=== PATIENT | female | born 1960 | race Caucasian/White ===

== ENCOUNTER 2016-10-24 18:06 | Emergency (ER) | payer SELFPAY ==
[2016-10-24 18:51] VITALS: BP 122/77; PULSE 95; TEMP 98.9; BMI 29.3
--- NOTE | 2016-10-24 21:03 | PDOC ---
History of Present Illness - History of Present Illness Initial Comments: 10/24/16 21:32 56F w/ hx of IBS, diverticulosis, and hiatal hernia presenting with 2 days of lower abdominal pain. Pt was in her USOH until 2 days ago when she developed this suprapubic abdominal pain in a belt-like distribution, 01/03, colicky, crampy in nature, radiating to back, worsened by walking, unrelieved by 2 excedrin pills and diclocyclamine, accompanied by nausea and night sweats last night. Pt thought she was constipated, took dulcolex last night, had a BM this am which only worsened the abdominal pain. She denies any dysuria. 10/24/16 21:48 <Kobe Lomeli - Last Filed: 10/25/16 00:24> <Sue Benson - Last Filed: 10/25/16 02:50> - General Chief Complaint: Pain Stated Complaint: ABDOMINAL PAIN Time Seen by Provider: 10/24/16 20:03 Past History - Past Medical History GI Disorders: Yes (GERD/ DIVERTICULOSIS/ IBS) HTN: Yes Psychiatric Problems: Yes (anxiety) Other medical history: HIATAL HERNIA Comment:: 10/24/16 21:50 Diverticulosis- dx 3-4 years ago hiatal hernia IBS- dx 3-4 years ago stress incontinence anxiety HTN Allergies: NKDA Meds: dicyclomine 10mg for diverticulosis xanax PRN lisinopril 40mg qd - Immunization History Immunization Up to Date: Yes - Psycho/Social/Smoking Cessation Hx Suicidal Ideation: No Smoking Status: No Smoking History: Never smoked Have you smoked in the past 12 months: No Number of Cigarettes Smoked Daily: 0 Information on smoking cessation initiated: No Hx Alcohol Use: No Drug/Substance Use Hx: No Substance Use Type: None <Kobe Lomeli - Last Filed: 10/25/16 00:24> <Sue Benson - Last Filed: 10/25/16 02:50> - Past Medical History Allergies/Adverse Reactions: Allergies Allergy/AdvReac Type Severity Reaction Status Date / Time No Known Allergies Allergy Verified 10/24/16 18:43 Home Medications: Ambulatory Orders Alprazolam 0.5 mg PO TID PRN #60 12/26/14 Lisinopril [Prinivil -] 40 mg PO DAILY #30 tablet 12/26/14 Doxycycline Monohydrate [Monodox] 100 mg PO Q12H #14 capsule 10/25/16 Ibuprofen [Motrin -] 600 mg PO TID PRN #21 tablet 10/25/16 Oxycodone HCl/Acetaminophen [Percocet 5-325 mg Tablet] 1 tab PO Q6H PRN #4 tablet MDD 4 10/25/16 Review of Systems - Review of Systems Comments:: 10/24/16 21:51 denies headaches, endorses some mild dyspnea and chest pain (one episode yesterday which resolved) 10/24/16 22:36 <Kobe Lomeli - Last Filed: 10/25/16 00:24> *Physical Exam - Vital Signs Last Vital Signs Temp Pulse Resp BP Pulse Ox 98.9 F 95 H 122/77 97 10/24/16 18:44 10/24/16 18:44 10/24/16 18:44 10/24/16 18:44 10/24/16 18:44 - Physical Exam Comments: 10/24/16 21:52 General: middle aged female lying in bed in mild distress Cardiac: tachycardic, normal rhythm, no m/r/g Pulm: CTAB, no wheezing, no rales Abd: soft, mildly distended, markedly tender to palpation in suprapubic region extremities: no edema, + pulses 10/24/16 22:36 <Kobe Lomeli - Last Filed: 10/25/16 00:24> - Vital Signs Last Vital Signs Temp Pulse Resp BP Pulse Ox 98.9 F 95 H 122/77 97 10/24/16 18:44 10/24/16 18:44 10/24/16 18:44 10/24/16 18:44 10/24/16 18:44 <Sue Benson - Last Filed: 10/25/16 02:50> ED Treatment Course - LABORATORY CBC & Chemistry Diagram: 10/24/16 22:00 10/24/16 22:00 <Kobe Lomeli - Last Filed: 10/25/16 00:24> - LABORATORY CBC & Chemistry Diagram: 10/24/16 22:00 10/24/16 22:00 - ADDITIONAL ORDERS Additional order review: Laboratory Results 10/24/16 10/24/16 22:00 22:00 Sodium 141 Potassium 3.6 Chloride 103 Carbon Dioxide 29 Anion Gap 9 BUN 13 Creatinine 0.9 Creat Clearance w eGFR > 60 Random Glucose 116 H Calcium 8.5 Total Bilirubin 1.1 H AST 30 ALT 42 Alkaline Phosphatase 79 D Total Protein 7.3 Albumin 3.5 Lipase 83 Urine Color Yellow Urine Appearance Clear Urine pH 5.0 Urine Protein Negative Urine Glucose (UA) Negative Urine Ketones Negative Urine Blood 2+ H Urine Nitrite Negative Urine Bilirubin Negative Urine Urobilinogen Negative Ur Leukocyte Esterase Trace Urine RBC 1 Urine WBC 2 Ur Epithelial Cells Rare Urine Mucus Rare 10/24/16 22:00 RBC 4.02 MCV 93.5 MCHC 33.5 RDW 13.8 MPV 8.2 Neutrophils % 74.8 Lymphocytes % 16.8 Monocytes % 6.5 Eosinophils % 1.2 Basophils % 0.7 - RADIOLOGY Radiology Studies Ordered: Category Date Time Status TRANSVAGINAL ULTRASOUND US [US] Stat Ultrasound 10/25/16 00:17 Taken - Medications Given in the ED: ED Medications Discontinued Medications Generic Name Dose Route Start Last Admin Trade Name Romana PRN Reason Stop Dose Admin Dicyclomine HCl 20 mg 10/24/16 22:15 10/24/16 22:44 Bentyl - PO 10/24/16 22:16 20 mg ONCE ONE Administration Sodium Chloride 1,000 mls @ 1,000 mls/hr 10/24/16 21:55 10/24/16 22:44 Normal Saline - IV 10/24/16 22:54 1,000 mls/hr ASDIR STA Administration Ketorolac Tromethamine 30 mg 10/25/16 00:17 10/25/16 01:05 Toradol Injection - IVPUSH 10/25/16 00:18 30 mg ONCE ONE Administration <Sue Benson - Last Filed: 10/25/16 02:50> Medical Decision Making - Medical Decision Making 10/24/16 22:38 A&P: 56F w/ hx of diverticulosis and IBS presenting with acute suprapubic pain similar to prior episodes of IBS pain but worse in severity. Exam notable for marked tenderness in suprapubic region. 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 Kobe Lomeli, attest that this document has been prepared under my direction and personally reviewed by me in its entirety. I further attest, that it accurately reflects all work, treatment, procedures and medical decision -making performed by me. <Kobe Lomeli - Last Filed: 10/25/16 00:24> <Sue Benson - Last Filed: 10/25/16 02:50> Diagnosis at time of Disposition: Suprapubic abdominal pain - Discharge Dispostion Disposition: HOME Condition at time of disposition: Stable - Prescriptions Prescriptions: Doxycycline Monohydrate [Monodox] 100 mg PO Q12H #14 capsule Ibuprofen [Motrin -] 600 mg PO TID PRN #21 tablet PRN Reason: Pain Oxycodone HCl/Acetaminophen [Percocet 5-325 mg Tablet] 1 tab PO Q6H PRN #4 tablet MDD 4 PRN Reason: Severe Pain - Referrals Referrals: Jaime Alcocer MD [Primary Care Provider] - - Patient Instructions Printed Discharge Instructions: DI for Pelvic Pain Additional Instructions: please followup with your drum stenciler return if you have worsening symptoms
[2016-10-24] MEDS ORDERED: SODIUM CHLORIDE 1,000 ML IV STA (21:55)
[2016-10-24] MEDS ORDERED: DICYCLOMINE HCL 20 MG TABLET PO ONE (21:55)
[2016-10-24] MEDS ORDERED: DICYCLOMINE HCL 10 MG CAPSULE PO ONE (22:15)
[2016-10-24] MEDS ORDERED: DICYCLOMINE HCL 10 MG CAPSULE ONE (22:34)
[2016-10-24 22:50] LABS: BASOPHIL 0.7 % (0-2.0); EOSINOPHIL 1.2 % (0-4.5); MCH 31.4 pg (25.7-33.7); MCHC 33.5 g/dl (32.0-36.0); MEAN CELL VOLUME 93.5 fl (80-96); MEAN PLT VOLUME 8.2 fl (7.5-11.1); NEUTROPHILS 74.8 % (42.8-82.8); PLATELET COUNT 238 K/MM3 (134-434); RDW 13.8 % (11.6-15.6); URINE APPEARANCE CLEAR; URINE BILIRUBIN NEGATIVE (NEGATIVE); URINE BLOOD 2+ (NEGATIVE); URINE COLOR YELLOW; URINE GLUCOSE (UA) NEGATIVE (NEGATIVE); URINE KETONE NEGATIVE (NEGATIVE); URINE LEUK ESTERASE TRACE (NEGATIVE); URINE NITRITE NEGATIVE (NEGATIVE); URINE PROTEIN NEGATIVE (NEGATIVE); URINE UROBILINOGEN NEGATIVE mg/dL (0.2-1.0); WHITE BLOOD COUNT 12.5 K/mm3 (4.0-10.0)
[2016-10-24 22:53] LABS: URINE MUCUS RARE; URINE RBC 1 /hpf (0-3); URINE WBC 2 /hpf (3-5)
[2016-10-25 00:04] LABS: ALBUMIN 3.5 g/dl (3.4-5.0); ALK PHOS 79 U/L (45-117); ANION GAP 9 (8-16); BILIRUBIN,TOTAL 1.1 mg/dL (0.2-1.0); CALCIUM 8.5 mg/dL (8.5-10.1); CO2 29 mmol/L (21-32); CREATININE 0.9 mg/dL (0.55-1.02); GLUCOSE,RANDOM 116 mg/dL (74-106); SGOT/AST 30 U/L (15-37); SGPT/ALT 42 U/L (12-78); TOT PROT 7.3 g/dl (6.4-8.2)
[2016-10-25] MEDS ORDERED: KETOROLAC TROMETHAMINE 30 MG/1 ML VIAL IVPUSH ONE (00:17)
[2016-10-25] MEDS ORDERED: KETOROLAC TROMETHAMINE 30 MG/1 ML VIAL ONE (00:53)
[2016-10-25] MEDS ORDERED: DOXYCYCLINE HYCLATE 100 MG CAPSULE PO ONE ×2 (01:08→01:12)
== END 2016-10-25 01:17 | disposition home or self-care (01) ==
LOC: JERFT 18:06 → JER 18:06
PROC: 3E0337Z Introduction of Electrolytic and Water Balance Substance into Peripheral Vein, Percutaneous Approach (ICD-10-PCS; principal; 2016-10-24)
PROC: 3E0333Z Introduction of Anti-inflammatory into Peripheral Vein, Percutaneous Approach (ICD-10-PCS; 2016-10-24)
DX: R10.30 Lower abdominal pain, unspecified (principal); I10 Essential (primary) hypertension; K21.9 Gastro-esophageal reflux disease without esophagitis; F41.9 Anxiety disorder, unspecified; Z87.19 Personal history of other diseases of the digestive system
CPT/HCPCS: 36415; 74000-TC; 76830-TC; 80053; 81003; 81015; 83690; 85025; 99282-25

== ENCOUNTER 2020-06-29 17:54 | Emergency (ER) | payer OTHER ==
[2020-06-29 18:01] VITALS: TEMP 98.5; BMI 30.9
[2020-06-29] MEDS ORDERED: LISINOPRIL 10 MG TABLET PO ONE (19:51)
[2020-06-29] MEDS ORDERED: LISINOPRIL 5 MG TABLET ONE (20:07)
[2020-06-29 20:38] LABS: EPI CELLS 8 /uL (0-25.1); HYALINE CASTS 0 /uL (0-3.1); URINE APPEARANCE CLEAR; URINE BACTERIA 108 /uL (0-1359); URINE BILIRUBIN NEGATIVE (NEGATIVE); URINE COLOR YELLOW; URINE GLUCOSE (UA) NEGATIVE (NEGATIVE); URINE KETONE NEGATIVE (NEGATIVE); URINE LEUK ESTERASE TRACE (NEGATIVE); URINE NITRITE NEGATIVE (NEGATIVE); URINE PROTEIN NEGATIVE (NEGATIVE); URINE RBC 13 /uL (0-23.9); URINE UROBILINOGEN 0.2 mg/dL (0.2-1.0); URINE WBC 14 /uL (0-25.8)
[2020-06-29 20:41] LABS: EOS % 2.8 % (0-4.5); HEMATOCRIT 36.7 % (32.4-45.2); HEMOGLOBIN 12.5 GM/dL (10.7-15.3); LYMPH % 39.7 % (8-40); MCH 31.1 pg (25.7-33.7); MCHC 34.1 g/dl (32.0-36.0); MONO % 8.6 % (3.8-10.2); NEUT % 47.9 % (42.8-82.8); PLATELET COUNT 229 K/MM3 (134-434); RBC 4.03 M/mm3 (3.60-5.2); RDW 13.6 % (11.6-15.6); WHITE BLOOD COUNT 5.4 K/mm3 (4.0-10.0)
[2020-06-29 20:56] VITALS: BP 168/87; PULSE 87
[2020-06-29 20:57] LABS: POTASSIUM 3.4 mmol/L (3.5-5.1)
[2020-06-29 20:59] LABS: ALBUMIN 3.7 g/dl (3.4-5.0); BLOOD UREA NITROGEN 15.4 mg/dL (7-18); CALCIUM 9.1 mg/dL (8.5-10.1)
[2020-06-29 21:04] LABS: BILIRUBIN,TOTAL 0.4 mg/dL (0.2-1); TOT PROT 7.4 g/dl (6.4-8.2)
[2020-06-29] MEDS ORDERED: IBUPROFEN 600 MG TABLET (FP) PO ONE (23:41)
[2020-06-29] MEDS ORDERED: FAMOTIDINE 10 MG TABLET PO ONE (23:43)
[2020-06-29] MEDS ORDERED: ACETAMINOPHEN 325 MG TABLET (FP) PO ONE (23:43)
[2020-06-29] MEDS ORDERED: ACETAMINOPHEN 325 MG TABLET (FP) ONE (23:52)
[2020-06-29] MEDS ORDERED: FAMOTIDINE 10 MG TABLET ONE (23:52)
== END 2020-06-30 00:15 | disposition home or self-care (01) ==
LOC: JER 17:54
DX: R10.30 Lower abdominal pain, unspecified (principal)
CPT/HCPCS: 36415; 74177-TC; 80053; 81003; 85025; 87086; 99285-25; Q9967

== ENCOUNTER 2022-07-23 10:29 | Observation (INO) | payer OTHER ==
[2022-07-23] MEDS ORDERED: SODIUM CHLORIDE 0.9% 500 ML INFUS.BAG IV ONE (11:06)
[2022-07-23] MEDS ORDERED: ONDANSETRON 4 MG/2 ML VIAL IVPUSH ONE (11:07)
[2022-07-23] MEDS ORDERED: ACETAMINOPHEN 1000 MG/100 ML BAG IVPB ONE (11:07)
[2022-07-23] MEDS ORDERED: ACETAMINOPHEN INJECTION 100 ML IVPB ONE (11:18)
[2022-07-23] MEDS ORDERED: ONDANSETRON 4 MG/2 ML VIAL ONE (11:18)
[2022-07-23 11:40] LABS: HEMATOCRIT 41.2 % (32.4-45.2); HEMOGLOBIN 14.3 GM/dL (10.7-15.3); MCH 31.3 pg (25.7-33.7); MCHC 34.8 g/dl (32.0-36.0); MEAN CELL VOLUME 89.9 fl (80-96); MEAN PLT VOLUME 8.3 fl (7.5-11.1); PLATELET COUNT 287 10^3/uL (134-434); RBC 4.58 M/mm3 (3.60-5.2); RDW 14.1 % (11.6-15.6); WHITE BLOOD COUNT 7.9 K/mm3 (4.0-10.0)
[2022-07-23 11:42] LABS: EPI CELLS 14 /uL (0-25.1); HYALINE CASTS 1 /uL (0-3.1); PH,URINE 5.5 (5.0-8.0); URINE APPEARANCE CLOUDY; URINE BACTERIA 30 /uL (0-1359); URINE BILIRUBIN NEGATIVE (NEGATIVE); URINE COLOR YELLOW; URINE GLUCOSE (UA) NEGATIVE (NEGATIVE); URINE KETONE NEGATIVE (NEGATIVE); URINE LEUK ESTERASE NEGATIVE (NEGATIVE); URINE NITRITE NEGATIVE (NEGATIVE); URINE PROTEIN NEGATIVE (NEGATIVE); URINE RBC 21 /uL (0-23.9); URINE UROBILINOGEN 0.2 mg/dL (0.2-1.0); URINE WBC 10 /uL (0-25.8)
[2022-07-23 12:03] LABS: POTASSIUM 3.1 mmol/L (3.5-5.1)
[2022-07-23 12:05] LABS: CALCIUM 9.2 mg/dL (8.5-10.1)
[2022-07-23 12:06] LABS: ALBUMIN 3.7 g/dl (3.4-5.0); BLOOD UREA NITROGEN 11.6 mg/dL (7-18)
[2022-07-23 12:10] LABS: BILIRUBIN,TOTAL 0.9 mg/dL (0.2-1); TOT PROT 7.8 g/dl (6.4-8.2)
[2022-07-23] MEDS ORDERED: KETOROLAC TROMETHAMINE 15 MG/ML VIAL IVPUSH ONE (15:02)
[2022-07-23] MEDS ORDERED: KETOROLAC TROMETHAMINE 15 MG/ML VIAL ONE (15:16)
[2022-07-23] MEDS ORDERED: CIPROFLOXACIN 500 MG TABLET (RESTRICTED TO ID) PO ONE (15:29)
[2022-07-23] MEDS ORDERED: POTASSIUM CHLORIDE ORAL LIQUID 20 MEQ/15 ML PO ONE (15:49)
[2022-07-23] MEDS ORDERED: POTASSIUM CHLORIDE ORAL LIQUID 20 MEQ/15 ML ONE (15:57)
[2022-07-23] MEDS ORDERED: ALPRAZOLAM 0.5 MG PO PRN (16:03)
[2022-07-23] MEDS ORDERED: ONDANSETRON 4 MG/2 ML VIAL IVPUSH PRN (16:06)
[2022-07-23] MEDS ORDERED: SODIUM CHLORIDE 1,000 ML IV SCH (16:15)
[2022-07-23] MEDS ORDERED: PANTOPRAZOLE 40 MG TABLET PO ONE (16:47)
[2022-07-23] MEDS: PANTOPRAZOLE 40 MG TABLET PO SCH (16:47)
[2022-07-23] MEDS: ALPRAZolam 0.25 MG TABLET PO PRN (21:36)
[2022-07-23] MEDS: ATORVASTATIN CA 10 MG TABLET (FP) PO SCH (21:36)
[2022-07-24] MEDS: amLODIPine BESYLATE 10 MG TABLET (FP) PO SCH (09:23)
[2022-07-24] MEDS: METOPROLOL TARTRATE 50 MG TABLET (FP) PO SCH ×2 (09:23→09:24)
[2022-07-24] MEDS: ALPRAZolam 0.25 MG TABLET PO PRN ×2 (09:23→22:09)
[2022-07-24] MEDS: CEFTRIAXONE 1 GM in DEXTROSE 5%-WATER - 50 ML IVPB SCH (09:23)
[2022-07-24] MEDS: PANTOPRAZOLE 40 MG TABLET PO SCH (09:23)
[2022-07-24 10:11] LABS: BASO % 0.5 % (0-2.0); EOS % 1.9 % (0-4.5); HEMATOCRIT 38.3 % (32.4-45.2); HEMOGLOBIN 13.2 GM/dL (10.7-15.3); LYMPH % 21.3 % (8-40); MCH 31.2 pg (25.7-33.7); MCHC 34.6 g/dl (32.0-36.0); MEAN CELL VOLUME 90.2 fl (80-96); MEAN PLT VOLUME 8.6 fl (7.5-11.1); NEUT % 68.3 % (42.8-82.8); PLATELET COUNT 294 10^3/uL (134-434); RBC 4.24 M/mm3 (3.60-5.2); RDW 14.3 % (11.6-15.6); WHITE BLOOD COUNT 9.1 K/mm3 (4.0-10.0)
[2022-07-24 10:21] LABS: POTASSIUM 3.3 mmol/L (3.5-5.1)
[2022-07-24 10:23] LABS: BLOOD UREA NITROGEN 11.6 mg/dL (7-18)
[2022-07-24] MEDS: POTASSIUM CHLORIDE TABS 20 MEQ TABLET.ER (FP) PO SCH (14:21)
[2022-07-24] MEDS: ACETAMINOPHEN 325 MG TABLET (FP) PO PRN (14:32)
[2022-07-24] MEDS: ATORVASTATIN CA 10 MG TABLET (FP) PO SCH (21:32)
[2022-07-24] MEDS ORDERED: METOPROLOL TARTRATE 50 MG TABLET (FP) PO SCH (22:00)
[2022-07-25] MEDS: ACETAMINOPHEN 325 MG TABLET (FP) PO PRN (06:09)
[2022-07-25 09:39] LABS: BASO % 0.9 % (0-2.0); EOS % 2.8 % (0-4.5); HEMATOCRIT 36.5 % (32.4-45.2); HEMOGLOBIN 12.6 GM/dL (10.7-15.3); LYMPH % 24.5 % (8-40); MCH 31.5 pg (25.7-33.7); MCHC 34.6 g/dl (32.0-36.0); MEAN CELL VOLUME 91.1 fl (80-96); MEAN PLT VOLUME 8.7 fl (7.5-11.1); MONO % 9.4 % (3.8-10.2); NEUT % 62.4 % (42.8-82.8); PLATELET COUNT 232 10^3/uL (134-434); RBC 4.01 M/mm3 (3.60-5.2); RDW 14.2 % (11.6-15.6); WHITE BLOOD COUNT 5.2 K/mm3 (4.0-10.0)
[2022-07-25] MEDS ORDERED: MAG HYDROX/AL HYDROX/SIMETH -MYLANTA- ORAL SUSPENSION PO ONE (09:46)
[2022-07-25] MEDS: PANTOPRAZOLE 40 MG TABLET PO SCH (09:48)
[2022-07-25] MEDS: ALPRAZolam 0.25 MG TABLET PO PRN (09:48)
[2022-07-25] MEDS: POTASSIUM CHLORIDE TABS 20 MEQ TABLET.ER (FP) PO SCH (09:48)
[2022-07-25] MEDS: amLODIPine BESYLATE 10 MG TABLET (FP) PO SCH (09:48)
[2022-07-25] MEDS: CEFTRIAXONE 1 GM in DEXTROSE 5%-WATER - 50 ML IVPB SCH (09:49)
[2022-07-25 11:17] LABS: POTASSIUM 3.6 mmol/L (3.5-5.1)
[2022-07-25 11:24] LABS: CALCIUM 9.2 mg/dL (8.5-10.1)
[2022-07-25 11:25] LABS: ALBUMIN 3.4 g/dl (3.4-5.0); BLOOD UREA NITROGEN 11.8 mg/dL (7-18); MAGNESIUM 2.1 mg/dL (1.8-2.4)
[2022-07-25 11:28] LABS: CREATININE 0.9 mg/dL (0.55-1.3)
[2022-07-25 11:50] VITALS: BP 126/66; PULSE 68; RESP 18; TEMP 98.3
[2022-07-25 12:26] VITALS: BMI 29.7
== END 2022-07-25 15:14 | disposition home or self-care (01) ==
LOC: JER 10:29 → INTOOBSV 15:46 → UNDOADMOB 15:46 → JERBED 15:46 → J8W 17:16 → JERBED 17:16 → J8W 17:16
PROVIDERS: ADMIT Internal Medicine; ATTEND Nurse Practitioner Family
PROC: 3E033NZ Introduction of Analgesics, Hypnotics, Sedatives into Peripheral Vein, Percutaneous Approach (ICD-10-PCS; principal; 2022-07-23)
PROC: 3E03329 Introduction of Other Anti-infective into Peripheral Vein, Percutaneous Approach (ICD-10-PCS; 2022-07-23)
PROC: 3E0333Z Introduction of Anti-inflammatory into Peripheral Vein, Percutaneous Approach (ICD-10-PCS; 2022-07-23)
PROC: 3E033GC Introduction of Other Therapeutic Substance into Peripheral Vein, Percutaneous Approach (ICD-10-PCS; 2022-07-23)
PROC: 3E0337Z Introduction of Electrolytic and Water Balance Substance into Peripheral Vein, Percutaneous Approach (ICD-10-PCS; 2022-07-23)
DX: K57.92 Diverticulitis of intestine, part unspecified, without perforation or abscess without bleeding (principal); I10 Essential (primary) hypertension; Z29.8 Encounter for other specified prophylactic measures
CPT/HCPCS: 0241U-QW; 36415; 74177-TC; 80048; 80053; 81003; 83690; 83735; 85025; 85027; 87045; 87046; 87086; 87324; 87449; 96361; 96365; 96366; 96367; 96374; 96375; 99285-25; G0378

== ENCOUNTER 2022-09-08 04:05 | Day surgery (SDC) | payer OTHER ==
[2022-09-07 08:34] VITALS: BMI 29.8
[2022-09-08 09:10] VITALS: RESP 18
[2022-09-08 09:59] VITALS: TEMP 98
[2022-09-08 10:33] VITALS: BP 137/89; PULSE 60
== END 2022-09-08 10:45 | disposition home or self-care (01) ==
LOC: JASU-ENDO 04:05
PROVIDERS: ATTEND Internal Medicine Gastroenterology
PROC: 0DB78ZX Excision of Stomach, Pylorus, Via Natural or Artificial Opening Endoscopic, Diagnostic (ICD-10-PCS; 2022-09-08)
PROC: 0DB68ZX Excision of Stomach, Via Natural or Artificial Opening Endoscopic, Diagnostic (ICD-10-PCS; principal; 2022-09-08 10:00)
DX: K21.00 Gastro-esophageal reflux disease with esophagitis, without bleeding (principal); K44.9 Diaphragmatic hernia without obstruction or gangrene; K31.7 Polyp of stomach and duodenum; K29.50 Unspecified chronic gastritis without bleeding
CPT/HCPCS: 88305-TC; 88342-TC

== ENCOUNTER 2022-09-22 05:25 | Day surgery (SDC) | payer OTHER ==
[2022-09-19 14:13] VITALS: BMI 29.8
[2022-09-22 11:23] VITALS: TEMP 98
[2022-09-22 11:54] VITALS: BP 126/76; PULSE 71; RESP 16
== END 2022-09-22 12:35 | disposition home or self-care (01) ==
LOC: JASU-ENDO 05:25
PROVIDERS: ATTEND Internal Medicine Gastroenterology
PROC: 0DBN8ZX Excision of Sigmoid Colon, Via Natural or Artificial Opening Endoscopic, Diagnostic (ICD-10-PCS; 2022-09-22)
PROC: 3E0H8KZ Introduction of Other Diagnostic Substance into Lower GI, Via Natural or Artificial Opening Endoscopic (ICD-10-PCS; 2022-09-22)
PROC: 0DBK8ZX Excision of Ascending Colon, Via Natural or Artificial Opening Endoscopic, Diagnostic (ICD-10-PCS; principal; 2022-09-22 10:30)
DX: Z12.11 Encounter for screening for malignant neoplasm of colon (principal); D12.2 Benign neoplasm of ascending colon; D12.5 Benign neoplasm of sigmoid colon; K64.8 Other hemorrhoids; K57.30 Diverticulosis of large intestine without perforation or abscess without bleeding; I10 Essential (primary) hypertension
CPT/HCPCS: 88305-TC

== ENCOUNTER 2022-11-29 04:55 | Day surgery (SDC) | payer OTHER ==
[2022-11-24 12:24] VITALS: BMI 29.3
[2022-11-29] MEDS ORDERED: BUPIVACAINE HCL/PF 0.25% (2.5MG/ML) 10 ML VIAL ONE (07:32)
[2022-11-29] MEDS ORDERED: LIDOCAINE HCL/PF 2% SDV 5ML VIAL ONE (08:04)
[2022-11-29] MEDS ORDERED: MIDAZOLAM HCL 2 MG/2 ML SINGLE DOSE VIAL ONE (08:05)
[2022-11-29] MEDS ORDERED: PROPOFOL 20 ML ONE (08:05)
[2022-11-29] MEDS ORDERED: SUCCINYLCHOLINE CHLORIDE 200 MG/10 ML VIAL ONE (08:05)
[2022-11-29] MEDS ORDERED: ROCURONIUM BROMIDE 50 MG/5 ML SYRINGE ONE ×3 (08:05→12:24)
[2022-11-29] MEDS ORDERED: HEPARIN NA (PORCINE) 5,000 UNITS/ML 1ML VIAL ONE ×2 (08:53→08:54)
[2022-11-29] MEDS ORDERED: cefOXitin SODIUM 2 GM VIAL (RESTRICTED TO ID) IVPB ONE ×2 (08:54→09:08)
[2022-11-29] MEDS ORDERED: BUPIVACAINE HCL/PF 0.25% (2.5MG/ML) 10 ML VIAL IJ ONE (09:40)
[2022-11-29] MEDS ORDERED: SUGAMMADEX SODIUM 200 MG/2 ML VIAL ONE (10:02)
[2022-11-29] MEDS ORDERED: SEVOFLURANE 250 ML BTL ONE (10:53)
[2022-11-29] MEDS ORDERED: ACETAMINOPHEN INJECTION 100 ML IVPB ONE (11:52)
[2022-11-29] MEDS ORDERED: ONDANSETRON 4 MG/2 ML VIAL ONE (11:56)
[2022-11-29] MEDS ORDERED: IBUPROFEN 800 MG/8 ML IJ IVPB PRN (13:21)
[2022-11-29] MEDS ORDERED: ONDANSETRON 4 MG/2 ML VIAL IVPUSH PRN (13:21)
[2022-11-29] MEDS ORDERED: IBUPROFEN 800 MG/8 ML IJ IVPB ONE ×2 (13:25→13:33)
[2022-11-29] MEDS ORDERED: SCOPOLAMINE HYDROBROMIDE 1 PATCH PATCH.TD72 TD SCH (13:30)
[2022-11-29] MEDS ORDERED: SIMETHICONE 80 MG TAB.CHEW (FP) PO SCH (13:30)
[2022-11-29] MEDS ORDERED: LACTATED RINGERS SOLUTION 1,000 ML IV SCH (13:30)
[2022-11-29] MEDS ORDERED: ALPRAZOLAM 0.5 MG PO SCH (13:30)
[2022-11-29] MEDS: METOCLOPRAMIDE HCL INJECTION 10 MG/2 ML VIAL IVPUSH SCH ×2 (14:43→19:50)
[2022-11-29 15:53] VITALS: RESP 18
[2022-11-29] MEDS: oxyCODONE HCL 5 MG TABLET PO PRN ×2 (17:21→21:33)
[2022-11-29] MEDS: ACETAMINOPHEN 325 MG TABLET (FP) PO PRN ×2 (17:23→21:33)
[2022-11-29] MEDS ORDERED: ATORVASTATIN CA 10 MG TABLET (FP) PO SCH (22:00)
[2022-11-30] MEDS: METOCLOPRAMIDE HCL INJECTION 10 MG/2 ML VIAL IVPUSH SCH ×2 (01:52→08:51)
[2022-11-30] MEDS ORDERED: amLODIPine BESYLATE 10 MG TABLET (FP) PO SCH (10:00)
[2022-11-30] MEDS ORDERED: POTASSIUM GLUCONATE 600 MG PO SCH (10:00)
[2022-11-30] MEDS ORDERED: PANTOPRAZOLE 40 MG TABLET PO SCH (10:00)
[2022-11-30 10:13] VITALS: BP 160/84; PULSE 69; TEMP 98
[2022-11-30] MEDS: oxyCODONE HCL 5 MG TABLET PO PRN (10:21)
[2022-11-30] MEDS ORDERED: IBUPROFEN 100 MG/5 ML UNIT DOSE CUPS PO PRN (13:09)
[2022-11-30] MEDS ORDERED: ONDANSETRON *ODT* 4 MG TABLET SL PRN (13:09)
[2022-11-30] MEDS ORDERED: ACETAMINOPHEN 650 MG/20.3 ML ORAL SOLUTION (CUPS) PO PRN (13:09)
== END 2022-11-30 12:07 | disposition home or self-care (01) ==
LOC: JASU-SURG 04:55 → JASUSAT 04:55 → J6S 15:28 → JASUSAT 11-30 12:07
PROVIDERS: ATTEND Surgery
PROC: 0BQT3ZZ Repair Diaphragm, Percutaneous Approach (ICD-10-PCS; principal; 2022-11-29 08:00)
DX: K44.9 Diaphragmatic hernia without obstruction or gangrene (principal); K21.9 Gastro-esophageal reflux disease without esophagitis
CPT/HCPCS: 43280; S2900; 86850; 86900; 86901; 93005; 93010; 94760; J1644

== ENCOUNTER 2023-10-31 04:16 | Inpatient (IN) | payer OTHER ==
[2023-10-30 09:06] VITALS: BMI 31.0
[2023-10-31] MEDS ORDERED: MIDAZOLAM HCL 2 MG/2 ML SINGLE DOSE VIAL ONE (07:14)
[2023-10-31] MEDS ORDERED: ROCURONIUM BROMIDE 50 MG/5 ML SYRINGE ONE ×2 (07:14→10:04)
[2023-10-31] MEDS ORDERED: SUCCINYLCHOLINE CHLORIDE 200 MG/10 ML SYRINGE ONE (07:14)
[2023-10-31] MEDS ORDERED: LIDOCAINE HCL/PF 2% SDV 5ML VIAL ONE (07:14)
[2023-10-31] MEDS ORDERED: PROPOFOL 20 ML ONE (07:14)
[2023-10-31] MEDS ORDERED: cefOXitin SODIUM 2 GM VIAL (RESTRICTED TO ID) IVPB ONE (07:19)
[2023-10-31] MEDS ORDERED: HEPARIN NA (PORCINE) 5,000 UNITS/ML 1ML VIAL ONE (07:19)
[2023-10-31] MEDS ORDERED: INDOCYANINE GREEN 25 MG/10 ML VIAL IVPUSH ONE (07:19)
[2023-10-31] MEDS ORDERED: BUPIVACAINE HCL/PF 0.25% (2.5MG/ML) 10 ML VIAL ONE (07:19)
[2023-10-31] MEDS ORDERED: ACETAMINOPHEN 1000 MG/100 ML BAG IVPB ONE (08:00)
[2023-10-31] MEDS: cefOXitin SODIUM 2 GM VIAL (RESTRICTED TO ID) IVPB ONE (08:23)
[2023-10-31] MEDS ORDERED: DEXAMETHASONE SOD PHOSPHATE 4 MG/1 ML VIAL ONE (08:24)
[2023-10-31] MEDS: INDOCYANINE GREEN 25 MG/10 ML VIAL IVPUSH ONE (08:29)
[2023-10-31] MEDS: BUPIVACAINE HCL/PF 0.25% (2.5MG/ML) 10 ML VIAL IJ ONE (09:10)
[2023-10-31] MEDS ORDERED: ONDANSETRON 4 MG/2 ML VIAL IVPUSH PRN (10:58)
[2023-10-31] MEDS ORDERED: PROMETHAZINE HCL 25 MG/1 ML VIAL IVPB PRN (10:58)
[2023-10-31] MEDS ORDERED: HYDROmorphone HCl 2 MG/ML VIAL ONE (11:09)
[2023-10-31] MEDS ORDERED: NEOSTIGMINE METHYLSULFATE 0.5 MG/1 ML - 10 ML MDV ONE (12:51)
[2023-10-31] MEDS ORDERED: GLYCOPYRROLATE 0.2 MG/1 ML VIAL ONE (12:52)
[2023-10-31] MEDS ORDERED: KETOROLAC TROMETHAMINE 30 MG/1 ML VIAL ONE (12:53)
[2023-10-31] MEDS ORDERED: ONDANSETRON 4 MG/2 ML VIAL ONE (12:53)
[2023-10-31] MEDS: ACETAMINOPHEN INJECTION 100 ML IVPB ONE (13:55)
[2023-10-31] MEDS: ACETAMINOPHEN 1000 MG/100 ML BAG IVPB ONE (13:55)
[2023-10-31] MEDS ORDERED: ceFAZolin SODIUM 1 GM VIAL ONE (16:02)
[2023-10-31] MEDS: CEFAZOLIN 2 GM in DEXTROSE 5%-WATER - 100 ML IVPB SCH (16:08)
[2023-10-31] MEDS: LACTATED RINGERS SOLUTION 1,000 ML IV SCH (16:35)
[2023-10-31] MEDS: oxyCODONE HCL 5 MG TABLET PO PRN ×2 (17:05→22:03)
[2023-10-31] MEDS: HEPARIN NA (PORCINE) 5,000 UNITS/ML 1ML VIAL SQ ONE (17:31)
[2023-10-31] MEDS: CEFOXITIN SODIUM 2 GM in DEXTROSE 5%-WATER - 100 ML IVPB ONE (17:32)
[2023-10-31] MEDS: IBUPROFEN 600 MG TABLET (FP) PO SCH (18:55)
[2023-10-31] MEDS: ACETAMINOPHEN 500 MG TABLET (FP) PO SCH (18:57)
[2023-10-31] MEDS: ATORVASTATIN CA 10 MG TABLET (FP) PO SCH (22:05)
[2023-11-01] MEDS: CEFAZOLIN SODIUM 2 GM in DEXTROSE 5%-WATER 100 ML IVPB SCH (08:37)
[2023-11-01 08:43] LABS: BASO % 0.1 % (0-2.0); EOS % 0.1 % (0-4.5); HEMATOCRIT 36.2 % (32.4-45.2); HEMOGLOBIN 12.6 GM/dL (10.7-15.3); MCH 32.6 pg (25.7-33.7); MCHC 34.8 g/dl (32.0-36.0); MEAN CELL VOLUME 93.7 fl (80-96); MEAN PLT VOLUME 8.6 fl (7.5-11.1); NEUT % 74.8 % (42.8-82.8); PLATELET COUNT 243 10^3/uL (134-434); RBC 3.86 M/mm3 (3.60-5.2); RDW 13.3 % (11.6-15.6); WHITE BLOOD COUNT 9.4 K/mm3 (4.0-10.0)
[2023-11-01 09:12] LABS: POTASSIUM 3.5 mmol/L (3.5-5.1)
[2023-11-01 09:25] LABS: CALCIUM 8.1 mg/dL (8.5-10.1)
[2023-11-01 09:26] LABS: CREATININE 0.9 mg/dL (0.55-1.3); PHOSPHOROUS 2.9 mg/dL (2.5-4.9)
[2023-11-01] MEDS: ENOXAPARIN NA (PORCINE) 40 MG/0.4 ML DISP.SYRIN SQ SCH (09:50)
[2023-11-01] MEDS: amLODIPine BESYLATE 10 MG TABLET (FP) PO SCH (09:50)
[2023-11-01] MEDS: ACETAMINOPHEN 1000 MG/100 ML BAG IVPB SCH (11:46)
[2023-11-01] MEDS: ALPRAZolam 1 MG TABLET PO SCH (11:47)
[2023-11-01] MEDS: CEFOXITIN SODIUM 2 GM in DEXTROSE 5%-WATER 100 ML IVPB SCH (18:27)
[2023-11-02 08:09] LABS: BASO % 0.7 % (0-2.0); EOS % 2.1 % (0-4.5); HEMATOCRIT 34.9 % (32.4-45.2); LYMPH % 22.9 % (8-40); MCH 32.8 pg (25.7-33.7); MCHC 34.4 g/dl (32.0-36.0); MEAN CELL VOLUME 95.1 fl (80-96); MEAN PLT VOLUME 8.6 fl (7.5-11.1); MONO % 7.3 % (3.8-10.2); PLATELET COUNT 206 10^3/uL (134-434); RBC 3.67 M/mm3 (3.60-5.2); RDW 13.5 % (11.6-15.6); WHITE BLOOD COUNT 8.3 K/mm3 (4.0-10.0)
[2023-11-02 08:29] LABS: POTASSIUM 3.4 mmol/L (3.5-5.1)
[2023-11-02 08:32] LABS: BLOOD UREA NITROGEN 8.2 mg/dL (7-18); CALCIUM 8.3 mg/dL (8.5-10.1)
[2023-11-02 08:35] LABS: CREATININE 0.9 mg/dL (0.55-1.3); PHOSPHOROUS 2.8 mg/dL (2.5-4.9)
[2023-11-02] MEDS: POTASSIUM CHLORIDE ORAL LIQUID 20 MEQ/15 ML PO ONE (10:12)
[2023-11-02] MEDS: POTASSIUM CHLORIDE TABS 20 MEQ TABLET.ER (FP) PO ONE (12:13)
[2023-11-03 08:35] LABS: BASO % 0.5 % (0-2.0); EOS % 2.9 % (0-4.5); HEMOGLOBIN 12.3 GM/dL (10.7-15.3); LYMPH % 26.6 % (8-40); MCH 32.3 pg (25.7-33.7); MCHC 34.2 g/dl (32.0-36.0); MEAN CELL VOLUME 94.3 fl (80-96); MONO % 8.2 % (3.8-10.2); NEUT % 61.8 % (42.8-82.8); PLATELET COUNT 249 10^3/uL (134-434); RBC 3.81 M/mm3 (3.60-5.2); RDW 13.5 % (11.6-15.6); WHITE BLOOD COUNT 8.1 K/mm3 (4.0-10.0)
[2023-11-03 08:38] LABS: POTASSIUM 3.6 mmol/L (3.5-5.1)
[2023-11-03 08:42] LABS: BLOOD UREA NITROGEN 9.9 mg/dL (7-18)
[2023-11-03 08:44] LABS: CALCIUM 8.9 mg/dL (8.5-10.1); MAGNESIUM 2.2 mg/dL (1.8-2.4)
[2023-11-03 08:45] LABS: CREATININE 0.9 mg/dL (0.55-1.3); PHOSPHOROUS 3.5 mg/dL (2.5-4.9)
[2023-11-04 07:57] LABS: BASO % 0.6 % (0-2.0); EOS % 3.8 % (0-4.5); HEMATOCRIT 36.3 % (32.4-45.2); HEMOGLOBIN 12.5 GM/dL (10.7-15.3); LYMPH % 37.3 % (8-40); MCH 32.4 pg (25.7-33.7); MCHC 34.4 g/dl (32.0-36.0); MEAN CELL VOLUME 94.3 fl (80-96); MEAN PLT VOLUME 8.5 fl (7.5-11.1); MONO % 7.6 % (3.8-10.2); NEUT % 50.7 % (42.8-82.8); PLATELET COUNT 301 10^3/uL (134-434); RBC 3.85 M/mm3 (3.60-5.2); RDW 13.1 % (11.6-15.6); WHITE BLOOD COUNT 7.1 K/mm3 (4.0-10.0)
[2023-11-04 08:15] LABS: POTASSIUM 3.4 mmol/L (3.5-5.1)
[2023-11-04 08:18] LABS: BLOOD UREA NITROGEN 11.6 mg/dL (7-18)
[2023-11-04 08:19] LABS: CALCIUM 9.3 mg/dL (8.5-10.1)
[2023-11-04 08:22] LABS: CREATININE 0.9 mg/dL (0.55-1.3)
[2023-11-05] MEDS: SIMETHICONE 80 MG TAB.CHEW (FP) PO ONE (03:33)
[2023-11-05 08:54] LABS: BASO % 0.4 % (0-2.0); EOS % 2.2 % (0-4.5); HEMATOCRIT 33.8 % (32.4-45.2); HEMOGLOBIN 11.7 GM/dL (10.7-15.3); LYMPH % 28.8 % (8-40); MCH 32.4 pg (25.7-33.7); MCHC 34.6 g/dl (32.0-36.0); MEAN CELL VOLUME 93.8 fl (80-96); MEAN PLT VOLUME 8.8 fl (7.5-11.1); MONO % 11.3 % (3.8-10.2); NEUT % 57.3 % (42.8-82.8); PLATELET COUNT 265 10^3/uL (134-434); RBC 3.61 M/mm3 (3.60-5.2); RDW 13.4 % (11.6-15.6); WHITE BLOOD COUNT 6.1 K/mm3 (4.0-10.0)
[2023-11-05 09:03] LABS: ACTIVATED PTT 30.3 SECONDS (25.2-36.5)
[2023-11-05 09:04] LABS: INR 0.98 (0.83-1.09); PROTHROMBIN TIME (PATIENT) 11.3 SEC (9.7-13.0)
[2023-11-05 09:13] LABS: POTASSIUM 3.5 mmol/L (3.5-5.1)
[2023-11-05 09:17] LABS: ALBUMIN 2.7 g/dl (3.4-5.0); CALCIUM 8.9 mg/dL (8.5-10.1)
[2023-11-05 09:18] LABS: BLOOD UREA NITROGEN 12.1 mg/dL (7-18)
[2023-11-05 09:21] LABS: CREATININE 0.8 mg/dL (0.55-1.3); PHOSPHOROUS 3.8 mg/dL (2.5-4.9)
[2023-11-05 09:22] LABS: BILIRUBIN,TOTAL 0.5 mg/dL (0.2-1); TOT PROT 6.3 g/dl (6.4-8.2)
[2023-11-05] MEDS: SIMETHICONE 80 MG TAB.CHEW (FP) PO PRN (10:30)
[2023-11-05] MEDS: oxyCODONE HCL 5 MG TABLET PO PRN (10:46)
[2023-11-05 11:43] VITALS: BP 119/77; PULSE 64; RESP 18; TEMP 98.4
== END 2023-11-05 14:43 | disposition home or self-care (01) | DRG 330 ==
LOC: JASU-SURG 04:16 → J2C 14:00 → J8W 16:44
PROVIDERS: ADMIT Internal Medicine; ATTEND Internal Medicine
PROC: 8E0W4CZ Robotic Assisted Procedure of Trunk Region, Percutaneous Endoscopic Approach (ICD-10-PCS; 2023-10-31)
PROC: 0DBN4ZZ Excision of Sigmoid Colon, Percutaneous Endoscopic Approach (ICD-10-PCS; principal; 2023-10-31 08:00)
PROC: 0T9B80Z Drainage of Bladder with Drainage Device, Via Natural or Artificial Opening Endoscopic (ICD-10-PCS; 2023-10-31 08:00)
PROC: 4A1635H Monitoring of Lymphatic Flow using Indocyanine Green Dye, Percutaneous Approach (ICD-10-PCS; 2023-10-31 08:00)
DX: K57.32 Diverticulitis of large intestine without perforation or abscess without bleeding (principal); F13.20 Sedative, hypnotic or anxiolytic dependence, uncomplicated; E87.6 Hypokalemia; I10 Essential (primary) hypertension; E78.5 Hyperlipidemia, unspecified; F41.9 Anxiety disorder, unspecified
CPT/HCPCS: 36415; 80048; 80053; 83735; 84100; 85025; 85610; 85730; 86140; 86850; 86900; 86901; 88307-TC; 94760; J0131; J1644

== ENCOUNTER 2023-12-07 06:00 | Day surgery (SDC) | payer OTHER ==
[2023-12-07 12:42] VITALS: BMI 30.8
[2023-12-07] MEDS ORDERED: DEXAMETHASONE SOD PHOSPHATE 10 MG/1 ML VIAL ONE (13:11)
[2023-12-07] MEDS: LIDOCAINE HCL 1% PRESERVATIVE FREE - 30ML VIAL IJ ONE (13:16)
[2023-12-07] MEDS: IOHEXOL 180 MG/1 ML ML IJ ONE (13:19)
[2023-12-07] MEDS: DEXAMETHASONE SOD PHOSPHATE 10 MG/1 ML VIAL IM ONE (13:19)
[2023-12-07 13:32] VITALS: BP 120/77; PULSE 78; RESP 16; TEMP 97.8
== END 2023-12-07 13:50 | disposition home or self-care (01) ==
LOC: JASU-SURG 06:00
PROVIDERS: ATTEND Pain Medicine Pain Medicine
PROC: 3E0R3BZ Introduction of Anesthetic Agent into Spinal Canal, Percutaneous Approach (ICD-10-PCS; 2023-12-07)
PROC: 3E0R33Z Introduction of Anti-inflammatory into Spinal Canal, Percutaneous Approach (ICD-10-PCS; principal; 2023-12-07 14:00)
DX: M54.16 Radiculopathy, lumbar region (principal)
CPT/HCPCS: 76000-TC-FY; J1100

== ENCOUNTER 2024-08-31 13:59 | Emergency (ER) | payer OTHER ==
[2024-08-31 14:13] VITALS: BP 127/83; PULSE 83; RESP 16; TEMP 98.2; BMI 31.1
[2024-08-31] MEDS ORDERED: METHOCARBAMOL 500 MG TABLET ONE (15:29)
[2024-08-31] MEDS ORDERED: LIDOCAINE 4% PATCH TP ONE ×3 (15:29→17:03)
[2024-08-31] MEDS ORDERED: KETOROLAC TROMETHAMINE 30 MG/1 ML VIAL ONE (15:29)
[2024-08-31] MEDS: LIDOCAINE 5% TOPICAL PATCH TP ONE ×2 (15:51→17:06)
[2024-08-31] MEDS: METHOCARBAMOL 500 MG TABLET PO ONE (15:51)
[2024-08-31] MEDS: KETOROLAC TROMETHAMINE 30 MG/1 ML VIAL IM ONE (15:51)
[2024-08-31] MEDS ORDERED: LIDOCAINE PATCH REMOVAL MC SCH ×2 (22:00)
== END 2024-08-31 17:30 | disposition home or self-care (01) ==
LOC: JER 13:59
DX: S16.1XXA Strain of muscle, fascia and tendon at neck level, initial encounter (principal); M43.16 Spondylolisthesis, lumbar region; X58.XXXA Exposure to other specified factors, initial encounter
CPT/HCPCS: 72040-TC; 72100-TC-FY; 99284-25